=== PATIENT | male | born 1945 | race Caucasian/White ===

== ENCOUNTER 2020-07-20 02:24 | Outpatient (CLI) | payer MEDICARE, SELFPAY ==
[2020-07-20 19:20] LABS: SARS-CoV-2 RNA PCR Negative
== END 2020-07-20 02:25 | disposition home or self-care (01) ==
LOC: ANHCOVIDDT 02:25
PROVIDERS: PCP Internal Medicine; Visit Provider Urology
DX: Z01.812 Encounter for preprocedural laboratory examination (principal); Z20.828 Contact with and (suspected) exposure to other viral communicable diseases
CPT/HCPCS: 87635; C9803; U0003

== ENCOUNTER 2020-08-03 02:21 | Outpatient (CLI) | payer MEDICARE, SELFPAY ==
[2020-08-03 18:40] LABS: SARS-CoV-2 RNA PCR Negative
== END 2020-08-03 02:22 | disposition home or self-care (01) ==
LOC: ANHCOVIDDT 02:21
PROVIDERS: PCP Internal Medicine; Visit Provider Urology
DX: Z01.812 Encounter for preprocedural laboratory examination (principal); Z20.828 Contact with and (suspected) exposure to other viral communicable diseases
CPT/HCPCS: 87635; C9803; U0003

== ENCOUNTER 2020-08-05 01:39 | Day surgery (SDC) | payer MEDICARE, SELFPAY ==
--- NOTE | 2020-07-22 15:17 | PC.NURSE ---
PT STATES NO CHANGE IN HEALTH HX SINCE LAST INTERVIEW ON 07/20/20
--- NOTE | 2020-08-05 06:44 | WPDHPUPDATE1 ---
History and Physical Update Update Date/Time: 08/05/20 06:44 History and Physical has been reviewed, including an updated exam of the patient. There are NO changes in the patient's condition. Risks, benefits, and alternatives have been discussed and questions answered. Patient agrees to proceed with procedure.
[2020-08-05 09:51] VITALS: BP 111/80; PULSE 85; RESP 20; TEMP 36.3; O2SAT 99
[2020-08-05] MEDS: LACTATED RINGERS 1,000 ML 30 ML IV CONT (10:05)
[2020-08-05 10:23] LABS: INR 1.3; Partial Thromboplastin Time 29.8 SECONDS (22.3-36.8); Prothrombin Time 15.8 Seconds (11.1-14.7)
--- NOTE | 2020-08-05 10:25 | WPDANESEPPF ---
Anes - Initial Pre Proc Eval Procedure: Operation Date: 08/05/20 11:30 Proposed Procedures p Urolift - Sanchez Evans MD Date/Time: 08/05/20 10:25 Surgeon: Sanchez Evans MD Pre Op Diagnosis: N40.1 BPH Patient Data Age: 75 Gender: M Height: 6 ft 1 in Weight: 103.45 kg Allergies Allergy/AdvReac Type Severity Reaction Status Date / Time No Known Allergies Allergy Unverified 07/22/20 15:15 Home Medications Medication Instructions Recorded Confirmed Type aspirin [Adult Low Dose Aspirin] 81 mg PO HS 07/20/20 07/22/20 History finasteride 5 mg PO HS 07/20/20 07/22/20 History furosemide 40 mg PO QAM 07/20/20 07/22/20 History metoprolol succinate 25 mg PO DAILY 07/20/20 07/22/20 History nitroglycerin 0.4 mg SUBLINGUAL PRN PRN 07/20/20 07/22/20 History spironolactone 25 mg PO QAM 07/20/20 07/22/20 History tamsulosin 0.4 mg PO QAM 07/20/20 07/22/20 History warfarin 5 mg PO DAILY 07/20/20 07/22/20 History zolpidem 2.5 mg PO PRN PRN 07/20/20 07/22/20 History Laboratory Tests 08/05/20 09:47 PT 15.8 Seconds H Seconds (11.1-14.7) INR 1.3 APTT 29.8 SECONDS SECONDS (22.3-36.8) Patient hx anesthesia problems: none Family hx anesthesia problems: none [facility] Past Medical History Medical History (Updated 08/05/20 @ 10:26 by Shoaib Moody MD) CHF (congestive heart failure) Obesity Pacemaker Family History Family History Father Family history unknown, Onset Age: 85 Mother Family history unknown, Onset Age: 88 Social History Social History Smoking status: Never smoker Second hand tobacco smoke exposure: No Alcohol intake: never Living arrangements: with family Spiritual care concerns: No Anes - Eval Final PreProcedure Day of Procedure 08/05/20 10:25 Patient weight: obese Heart: regular rate and rhythm (paced) Lungs: clear to auscultation Airway: Mallampati scale class II Neurological: alert and oriented Last oral intake: >/= 8 hours ASA classification: IV Emergent: no Anesthetic plan: proceed Anesthesia type and monitoring: general GIVS and standard monitoring Informed Consent: The patient's anesthetic plan and its attendant risks and benefits were discussed with the patient/family/POA. Questions were solicited and answers provided to the satisfaction of the patient/family/POA.
[2020-08-05] MEDS: ceFAZolin 2 GM/D5W 50 ML 2 GM/50 ML BAG IVPB (11:08)
[2020-08-05] MEDS: LIDOCAINE HCL 2% GEL UROJET 10 ML PKG MUCOUS MEM (11:28)
--- NOTE | 2020-08-05 11:39 | PM.PROC ---
Procedure Note - Detailed Date of procedure: 08/05/20 Pre-op diagnosis: N40.1 BPH Post-op diagnosis: same Procedure performed: Urolift implant Description of procedure: The patient was prepped and draped in a routine fashion after the uneventful induction of a general LMA anesthetic. A 20F cystoscope was inserted into the bladder. The cystoscopy bridge was replaced with a UroLift delivery device. The first treatment site was the patient's right side approximately 1.5cm distal to the bladder neck. The distal tip of the delivery device was then angled laterally approximately 20 degrees at this position to compress the lateral lobe. The trigger was pulled, thereby deploying a needle containing the implant through the prostate. The needle was then retracted, allowing one end of the implant to be delivered to the capsular surface of the prostate. The implant was then tensioned to assure capsular seating and removal of slack monofilament. The device was then angled back toward midline and slowly advanced proximally (typically 3 to 4 mm) until cystoscopic verification of the monofilament being centered in the delivery bay. The urethral end piece was then affixed to the monofilament thereby tailoring the size of the implant. Excess filament was then severed. The delivery device was then re-advanced into the bladder. The delivery device was then replaced with cystoscope and bridge and the implant location and opening effect was confirmed cystoscopically. The same procedure was then repeated on the left side, and two additional implants were delivered just proximal to the verumontanum, again one on right and one on left side of the prostate, following the same technique. Cystoscopy then revealed a persistent area of obstruction, and two more implants were delivered in the mid-prostate. Therefore, a total of 6 implants were delivered. A final cystoscopy was conducted first to inspect the location and state of each implant and second, to confirm the presence of a continuous anterior channel was present through the prostatic urethra with irrigation flow turned off. The bladder was then filled with 150 cc irrigation fluid to assist the patient in void trial after the procedure, and all instruments were removed. At this point the cystoscope was removed and the patient was taken to the PACU in good condition. Anesthesia: MAC Surgeon: Sanchez Evans MD Estimated blood loss (mL): 5 Drains: No Packing: No Pathology: none sent Complications: No immediate complications Condition: stable Disposition: PACU
[2020-08-05 11:40] VITALS: BP 94/72; PULSE 78; RESP 20
[2020-08-05 12:10] VITALS: BP 103/67; PULSE 68; RESP 20
[2020-08-05 12:35] VITALS: BP 93/67; PULSE 70; RESP 20
[2020-08-05 13:05] VITALS: BP 94/72; PULSE 74; RESP 20
[2020-08-05] MEDS: ACETAMINOPHEN 325 MG TABLET 650 MG PO (13:46)
--- NOTE | 2020-08-05 14:53 | SUR.PHASEII ---
[id number] Nael rn unable to sraight cath pt, clots unable to advance catheter. dr castro notified, came to bedside in op recovery, dr castro irrigated and able to insert a 18fr joseph cath. 200ml bloody urine out. leg bag attached and bigger bag sent with pt. pt ok to remove joseph cath tomorrow or come to office saturday morning to have joseph cath removed.
== END 2020-08-05 14:10 | disposition home or self-care (01) ==
PROVIDERS: PCP Emergency Medicine; Visit Provider Urology
PROC: 0T7D8DZ Dilation of Urethra with Intraluminal Device, Via Natural or Artificial Opening Endoscopic (ICD-10-PCS; CPT 52441; principal; 2020-08-05 11:30)
DX: N40.1 Benign prostatic hyperplasia with lower urinary tract symptoms (principal); R35.0 Frequency of micturition; R35.1 Nocturia; I50.9 Heart failure, unspecified; Z95.0 Presence of cardiac pacemaker; Z79.01 Long term (current) use of anticoagulants; Z79.82 Long term (current) use of aspirin; E66.9 Obesity, unspecified; Z68.30 Body mass index [BMI] 30.0-30.9, adult
CPT/HCPCS: C9740; 36415; 85610; 85730; 87635; A9270; C9803; J0690; J2704; J7120; L8699; U0003

== ENCOUNTER 2020-08-06 04:24 | Observation (INO) | payer MEDICARE, SELFPAY ==
[2020-08-06 03:20] VITALS: BP 118/90; PULSE 91; RESP 18; TEMP 36.2; O2SAT 98; BMI 30.4
[2020-08-06 06:00] VITALS: BP 98/70; PULSE 69; RESP 18; TEMP 37.1; O2SAT 95
[2020-08-06 06:24] LABS: Hematocrit 36.7 % (42.0-52.0); Hemoglobin 12.1 g/dL (14.0-18.0); Immature Platelet Fraction Pct 12.9 % (0.9-11.2); Mean Corpuscular Hemoglobin 31.8 pg (26-34); Mean Corpuscular Volume 96.6 fl (80-100); Mean Platelet Volume 12.7 fl (7.4-10.4); Platelet Count Result 85 k/mm3 (150-375); Red Cell Distribution Width 14.2 % (11.5-14.5); White Blood Count 4.9 K/mm3 (4.5-10.0)
[2020-08-06 06:34] LABS: Anion Gap 6 mmol/L (8-16); Blood Urea Nitrogen 30 mg/dL (9-20); Calcium 8.8 mg/dL (8.4-10.2); Carbon Dioxide 31 mmol/L (22-30); Chloride 98 mmol/L (98-107); Estimated CRCL calculation 64 ml/min; Estimated Glomerular Filt Rate > 60; Glucose 102 mg/dL (75-110); Sodium 135 mmol/L (137-145)
[2020-08-06 06:40] LABS: INR 1.4; Prothrombin Time 16.6 Seconds (11.1-14.7)
[2020-08-06 06:41] LABS: Partial Thromboplastin Time 32.1 SECONDS (22.3-36.8)
[2020-08-06 08:00] VITALS: PULSE 69; RESP 18; O2SAT 95
--- NOTE | 2020-08-06 08:57 | PC.NURSE ---
Patient states that he wants bed alarm turned off. Patient walks with cane, has had narcotic pain medication in the last 24 hours, and states that he feels weak. I educated the patient on the necessity of bed alarm. Patient states he understands but reinforcement in needed.
[2020-08-06 14:00] VITALS: BP 100/78; PULSE 94; RESP 14; TEMP 36.2; O2SAT 97
--- NOTE | 2020-08-06 21:20 | PM.IMHP ---
H&P: HPI History of Present Illness Date/Time: 08/06/20 21:20 Chief complaint: Hematuria Narrative: Shoaib Mnuguia is a 75 year old male who underwent UroLift yesterday with Dr. Evans. He was unable to pass his trial of void and had hematuria postoperatively, therefore a catheter was placed. The catheter irrigated easily and the patient was discharged home. He subsequently developed clot retention and proceeded to [facility]. There his cathteter could not be irrigated so it was replaced with a large bore 3-way CBI catheter. He received CBI in [facility] ER but his urine cleared and it was discontinued. He was deemed fit for discharge by the ER physician, however refused discharge and demanded transfer to [place]. I accepted his transfer early this morning. After transfer to [place] he was admitted to the floor. He has not required CBI. He has denied pain. He is frustrated that I have been unable to see him sooner. His urine is free of clot and pink-tinged. He reports he has not taken his lasix (40 mg po), spironolactone or metoprolol. He would these medications now as well as ambien. He also tells me that he was given narcotic and perhaps a benzodiazepine in the ER at [facility] yesterday evening and this made him sleepy and sedated until the afternoon. He is very frustrated that he did not sleep yesterday evening. Review of Systems Constitutional: Constitutional: Denies body ache(s), Denies chills and Denies fever(s) Eyes: Eyes: Reports no additional eye complaints ENT: Reports bleeding gums Cardiovascular: Cardiovascular: Denies chest pain and Reports leg edema Respiratory: Respiratory: Denies cough and Denies dyspnea on exertion Gastrointestinal: Gastrointestinal: Reports no additional gastrointestinal complaints Genitourinary: Genitourinary: Reports hematuria and Denies genital pain Hematologic/Lymphatic: Hematologic/Lymphatic: Reports no additional hematologic/lymphatic complaints Allergic/Immunologic: Allergic/Immunologic: Reports no additional allergic/immunologic complaints [facility] Past Medical History Medical History (Updated 08/06/20 @ 21:31 by Andrae Baron MD) CHF (congestive heart failure) Obesity Pacemaker Social History Social History Smoking status: Never smoker Smokeless tobacco user: chewing tobacco Second hand tobacco smoke exposure: No Alcohol intake: former Substance use: never Spiritual care concerns: No Meds Home Medications and Allergies Home Medications Medication Instructions Recorded Confirmed Type aspirin [Adult Low Dose Aspirin] 81 mg PO HS 07/20/20 08/06/20 History finasteride 5 mg PO HS 07/20/20 08/06/20 History furosemide 40 mg PO QAM 07/20/20 08/06/20 History metoprolol succinate 25 mg PO DAILY 07/20/20 08/06/20 History nitroglycerin 0.4 mg SUBLINGUAL PRN PRN 07/20/20 08/06/20 History spironolactone 25 mg PO QAM 07/20/20 08/06/20 History warfarin 5 mg PO DAILY 07/20/20 08/06/20 History zolpidem 2.5 mg PO PRN PRN 07/20/20 08/06/20 History cephalexin 500 mg PO Q8H #9 cap 08/05/20 08/06/20 Rx hydrocodone-acetaminophen 1 - 2 tablet PO Q6H PRN #20 tablet 08/05/20 08/06/20 Rx Allergies Allergy/AdvReac Type Severity Reaction Status Date / Time No Known Allergies Allergy Unverified 08/05/20 11:12 Vital Signs Vital Signs - 24 hr 08/06/20 03:20 08/06/20 06:00 08/06/20 08:00 Temperature 97.2 F L 98.7 F Pulse Rate 91 69 69 Respiratory Rate 18 18 18 Blood Pressure 118/90 98/70 L Pulse Oximetry 98 95 95 08/06/20 14:00 Temperature 97.1 F L Pulse Rate 94 Respiratory Rate 14 Blood Pressure 100/78 Pulse Oximetry 97 Exam Const: General: no acute distress, well developed, alert and awake Orientation/consciousness: oriented to person, oriented to place, oriented to time, patient oriented x3, No confusion and No lethargic Limitations: No altered mental status HENMT: Head: normal to insp
== END 2020-08-06 16:45 | disposition home or self-care (01) ==
PROVIDERS: Admitting Provider Urology; PCP Emergency Medicine; Visit Provider Urology
DX: R31.0 Gross hematuria (principal); I50.9 Heart failure, unspecified; E66.9 Obesity, unspecified; Z95.0 Presence of cardiac pacemaker; Z68.30 Body mass index [BMI] 30.0-30.9, adult
CPT/HCPCS: 36415; 80048; 85027; 85055; 85610; 85730; G0378; G0379